=== PATIENT | female | born 1960 | race Asian ===

== ENCOUNTER 2020-01-25 22:47 | Emergency (ER) | payer MEDICAID ==
[~2020-01-25] VITALS: Ht 154.9 cm; Wt 63.5 kg
[2020-01-25 22:47] VITALS: BP 178/94
== END 2020-01-26 00:14 | disposition home or self-care (01) ==
LOC: ER 22:52
DX: B34.9 Viral infection, unspecified (principal); R91.8 Other nonspecific abnormal finding of lung field
CPT/HCPCS: 71045-TC